=== PATIENT | male | born 1960 | race Caucasian/White ===

== ENCOUNTER 2023-04-26 16:46 | Emergency (ER) | payer OTHER, SELFPAY ==
[2023-04-26] VITALS (8 sets, daily range): BP systolic 160–198; BP diastolic 92–119; PULSE 76–99; RESP 16–21; TEMP 36.9; O2SAT 95–98
--- NOTE | ~2023-04-26 | XR_ITS ---
EXAMINATION: XR shoulder LT min 2V DATE: 04/26/2023 17:33 INDICATION: Left shoulder injury TECHNIQUE: AP and transscapular Y views of the left shoulder were obtained. COMPARISON: None FINDINGS: Anterior dislocation of the left humeral head with respect to the glenoid. No evident fracture. Mild acromioclavicular osteoarthritis. Soft tissues are unremarkable. No airspace opacities in the visuali zed left lung. IMPRESSION: Anterior left glenohumeral dislocation without evident fracture. Reviewed, dictated and finalized at location A. R FINISHER
--- NOTE | ~2023-04-26 | XR_ITS ---
EXAMINATION: XR shoulder LT 1V DATE: 04/26/2023 19:41 INDICATION: Attempted reduction of a left shoulder dislocation TECHNIQUE: AP view of the left shoulder was obtained. COMPARISON: 04/26/2023 at 5:31 PM FINDINGS: Persistent anterior left glenohumeral dislocation. There is a curvilinear opacity projecting over the humeral head slightly anteromedial to the expected rim of the glenoid which is suspicious for possib le associated Bankart fracture. No other lesions suspicious for fracture identified. IMPRESSION: 1. Persistent anterior left glenohumeral dislocation. 2. Curvilinear opacity suspicious for mildly displaced Bankart fracture at the anteroinferior glenoid . Recommend complete shoulder series for further evaluation post successful reduction. Reviewed, dictated and finalized at location A. MASTER RELIEF IMPRESSION: 1. Persistent anterior left glenohumeral dislocation. 2. Curvilinear opacity suspicious for mildly displaced Bankart fracture at the anteroinferior glenoid. Recommend complete shoulder series for further evaluati on post successful reduction.
--- NOTE | 2023-04-26 19:12 | ED.GENADULT ---
HPI - General Adult General Chief complaint: Extremity Injury, Upper Stated complaint: left shoulder pain Time Seen by Provider: 04/26/23 19:03 History of Present Illness [facility] narrative: Pt presents to the ER after a fall last night. Decreased movement of left arm today then felt a crunch after reaching into the fridge. Has history of shoulder injury in the past. He states that he could not lift his arm all the way up after the fall last night. Tingling of left fingers started upon arrival to the emergency department. Related Data Home Medications Medication Instructions Recorded Confirmed losartan 100 mg tablet 100 mg PO DAILY 10/06/22 10/10/22 Allergies Allergy/AdvReac Type Severity Reaction Status Date / Time No Known Allergies Allergy Unverified 10/06/22 15:00 Review of Systems Review of Systems: ROS negative except for what is documented in the [facility] Social History Social History (Updated 10/06/22 @ 15:02 by Seda Garland [facility]) Smoking status: Never smoker Alcohol intake: current Lack of Transportation: No Lack of Food: Never True Current Housing: I Have Housing Concerned About Future Housing: No Difficulty Paying Gas/Electric Bills: No Difficulty Paying for Meds: No Currently Unemployed: No Education: High School Diploma/GED Difficulty w/ Childcare or Family Care: No Exam Narrative: GENERAL: Well-appearing, well-nourished, and in no acute distress. HEAD: Normocephalic, atraumatic. EYES: PERRLA and EOMI. ENT: Nares clear, no rhinorrhea or epistaxis. Mucous membranes moist. NECK: Supple. CHEST: Clear to auscultation. No respiratory distress. HEART: Regular rate and rhythm. ABDOMEN: Soft, nontender, nondistended. EXTREMITIES: No edema. Left radial pulse strong. Patient has pain with movement of left arm SKIN: Warm, dry, no rash. NEURO: No focal deficits. Alert and oriented x3. No weakness or numbness of the left arm PSYCH: Normal mood and affect. Course Course Emergency Course: left shoulder dislocation on xray - sedation and reduction discussed with patient and family exam after patient sedated shows full ROM of left shoulder. unable to reduce with external rotation and supination or traction/countertraction. Discussed with Dr Grigsby who agrees that exam is not consistent with reduction. I have concern for tearing of ligaments versus chronic arthritis. Ortho agrees to see pt in the office this week 2109 Patient continues to have pain. Toradol and morphine ordered. We will also place in sling and reassess. He continues to complain of tingling of his left hand. Vital Signs Vital signs: Vital Signs Temperature 36.9 C 04/26/23 16:48 Pulse Rate 99 04/26/23 16:48 Respiratory Rate 20 04/26/23 16:48 Blood Pressure 160/92 H 04/26/23 16:48 Pulse Oximetry 98 04/26/23 16:48 Oxygen Delivery Room Air 04/26/23 16:48 Temperature 36.9 C 04/26/23 16:48 Pulse Rate 76 04/26/23 20:08 Respiratory Rate 18 04/26/23 20:08 Blood Pressure 175/104 H 04/26/23 20:08 Pulse Oximetry 96 04/26/23 20:08 Oxygen Delivery Room Air 04/26/23 20:08 Oxygen Flow Rate 2 04/26/23 19:54 Procedures Orthopedic Joint Reduction Joint #1: Orthopedic Joint Reduction Date: 04/26/23 Side: left Joint Reduction Location: shoulder Analgesia: procedural sedation Pre-Procedure Neuro Vascular Exam: abnormal Shoulder Technique Used (if applicable): traction/counter-traction, scapula manipulation and external rotation Post-reduction neuro exam: intact Post-reduction vascular: intact Post Reduction X-Ray Obtained: Yes Post Reduction X-Ray Results: not reduced Splint Applied: No Patient Tolerated Procedure: well Additional Comments: Full ROM of left shoulder while sedated Multiple techniques applied without reduction Procedural Sedation Procedural Sedation #1:
[2023-04-26] MEDS: fentaNYL CITRATE INJ (*CRX) 100 MCG/2 ML VIAL 50 MCG IV PUSH ×2 (19:24→19:25)
[2023-04-26] MEDS: ETOMIDATE 20 MG/10 ML AMPUL 10 MG IV PUSH (19:24)
[2023-04-26] MEDS: SODIUM CHLORIDE 0.9% IV 1,000 ML 150 ML IV CONT (19:25)
--- NOTE | 2023-04-26 19:50 | PC.NURSE ---
Addendum entered by Simran Burks RN 04/26/23 19:57: Etomidate not Atomidate Original Note: in room verbal orders to push medications. 2 RN at bedside at this time. Patient is hooked up to monitor. Bedside X-Ray taken after. 50 of fentanyl given at 1927 50 of fentanyl given at 1928 Atomidate given at 1928 (50) Atomidate given at 1930 (50)
[2023-04-26] MEDS: KETOROLAC 15 MG/ML VIAL (*BKC) IV PUSH (20:59)
[2023-04-26] MEDS: MORPHINE SULFATE (*CRX) 2 MG/ML INJ IV PUSH (21:00)
[2023-04-26] MEDS: HYDROmorphone HCL INJ (*CRX) 1 MG/ML SYR IV PUSH (21:19)
== END 2023-04-26 21:51 | disposition home or self-care (01) ==
PROVIDERS: Emergency Provider Emergency Medicine; PCP Nurse Practitioner Family
DX: S43.015A Anterior dislocation of left humerus, initial encounter (principal); I10 Essential (primary) hypertension; X50.0XXA Overexertion from strenuous movement or load, initial encounter
CPT/HCPCS: 23650; 73020; 73030; 96374; 96375; 99285; A4565; J1170; J1885; J2270; J3010; J7030

== ENCOUNTER → 2023-04-29 09:50 | Outpatient (CLI) | payer OTHER, SELFPAY ==
--- NOTE | ~2023-04-29 | MR_ITS ---
EXAMINATION: MR shoulder LT wo con DATE: 04/29/2023 10:58 INDICATION: Left shoulder pain TECHNIQUE: Magnetic resonance imaging (MRI) of the left shoulder was performed without intravenous co ntrast. Sequences included axial PD-weighted FS FSE, coronal oblique PD-weighted FS FSE, coronal obli que T2-weighted FS FSE, sagittal PD-weighted FS FSE, and sagittal T1-weighted SE. COMPARISON: None. FINDINGS: Coracoacromial arch: The acromion undersurface is minimally curved in morphology (type I-II). There is a small anterior mccracken bacromial spur at the acromial insertion of the normal coracoacromial ligament. Moderate acromioclavi cular osteoarthritis with mild subarticular edema-like signal changes primarily at the clavicular arleth e of the joint space and without significant osteophytosis. Rotator cuff: Moderate supraspinatus and infraspinatus tendinopathy with full-thickness tear measuring 2 cm AP ruma g the greater tuberosity footplate of the mid to posterior supraspinatus and anterior infraspinatus t endons. The tear measures 2 mm medial collateral with the retracted tear margin located slightly late ral to the lateral rim of the acromion. The anteriormost portion of the supraspinatus tendon remains intact. The teres minor tendon is normal. Moderate subscapularis tendinopathy without discrete tear. No asymmetric rotator cuff muscle atrophy suggesting the full-thickness supraspinatus tendon tear is acute. Biceps tendon, glenoid labrum and glenohumeral cartilage: Long head of the biceps tendon is normal. Anterior, inferior and medial distraction osseous Bankart d isplacement of a thin crescentic osseous Bankart fracture fragment arising from the anteroinferior ri m of the glenoid. The fragment with attached torn labrum measures approximately 2.2 cm in length and is best appreciated on the postreduction radiographs from 04/27/2023. The donor site appears to extend from the 2:30 to the 5:00 position of the glenoid insertion of the anterior-inferior glenoid. There is associated periosteal stripping along the anteroinferior glenoid which includes the glenohumeral l igament. There is also an detachment of the inferior labrum extending posteriorly to the pancreatic f racture defect to at least the 6:00 position. There is additional separate labral tear along the 9:00 -10:30 position of the posterior glenoid. This appears also include a small test avulsed bone fragmen t which is also better seen on the prior postreduction radiographs projecting posterior to the julisa l head on the transscapular Y projection. Small region of glenoid chondral injury along the margin of the osseous Bankart fracture. Mild partial-thickness cartilage loss with smooth chondral surface patrick ng the cephalad third of the glenoid and inferomedial aspect of the humeral head likely related to pr e-existing mild glenohumeral osteoarthritis. Fluid: Large glenohumeral joint effusion with heterogeneous increased T2 signal at the axillary recess likel y representing a hemarthrosis. This extends through the full-thickness rotator cuff tear into the sub acromial/subdeltoid and subcoracoid bursae. There is also edema extending medially from the deep subs capular recess to involve the deep aspect of the subscapularis muscle belly along the anterior margin of the scapular body. Bones: Bone alignment is normal. There is mild marrow edema along a Hill-Sachs fracture trough at the mobile device engineer olateral aspect of the humeral head. Prominent cystic change along the lesser tuberosity, superior fa cet of the greater tuberosity along the lateral margin of the intertubercular groove likely related t o chronic rotator cuff disease. IMPRESSION: 1. Hill-Sachs fracture trough and corresponding displaced osseous Bankart fracture at the anterior to anteroinferior glenoid consistent with recent anterior dislocation injury. Labral detachment separat e from the Bankart fracture fragment extends mobile device engineer
== END ==
PROVIDERS: PCP Nurse Practitioner Family; Visit Provider Orthopaedic Surgery
DX: S43.005A Unspecified dislocation of left shoulder joint, initial encounter (principal); S42.292A Other displaced fracture of upper end of left humerus, initial encounter for closed fracture; S43.432A Superior glenoid labrum lesion of left shoulder, initial encounter; M19.012 Primary osteoarthritis, left shoulder; T14.90XA Injury, unspecified, initial encounter
CPT/HCPCS: 73221

== ENCOUNTER 2023-05-01 09:38 | Emergency (ER) | payer OTHER, SELFPAY ==
[2023-05-01] VITALS (8 sets, daily range): BP systolic 147–180; BP diastolic 93–106; PULSE 66–98; RESP 12–18; TEMP 36.5–37; O2SAT 95–100
--- NOTE | ~2023-05-01 | XR_ITS ---
EXAMINATION: XR shoulder LT min 2V INDICATION: Post reduction TECHNIQUE: Two views of the left shoulder are submitted. COMPARISON: 1005 hours; MRI, 04/29/2023 FINDINGS: Alignment is within reduced. Again noted are a Hill-Sachs fracture and Bankart fracture of the inferior glenoid. No new fracture is identified. There is mild osteoarthritis of the glenohumeral and acromioclavicular joints. Soft tissues are unremarkable. IMPRESSION: 1. Reduced glenohumeral dislocation. 2. Subacute Hill-Sachs and Bankart fractures. Reviewed, dictated and finalized at location B. T AND PATTERN DESIGNER
--- NOTE | ~2023-05-01 | XR_ITS ---
Left Shoulder Technique: AP and scapular Y views were obtained. Clinical History: Dislocation COMPARISON: 04/27/2023 Findings: There is anteroinferior dislocation of the left humeral head. AC joint is intact. Probable Hill-Sachs impaction deformity of the humeral head. Soft tissues are unremarkable. Impression: Anteroinferior dislocation of the left humeral head. Probable Hill-Sachs impaction deformity of the humeral head. Recent MR from 04/29/2023 demonstrated osseous Bankart lesion/glenoid fracture, which is not clearly d elineated on plain radiographs. Reviewed, dictated and finalized at location . F SCIENCE OFFICER Impression: Anteroinferior dislocation of the left humeral head. Probable Hill-Sachs impaction deformity of the humeral head. Recent MR from 04/29/2023 demonstrated osseous Bankart lesion/glenoid fracture, which is not clearly delineated on plain radiographs.
--- NOTE | 2023-05-01 10:42 | ED.UPPEXIN ---
HPI - Extremity Injury (Upper) General Chief Complaint: Extremity Injury, Upper Stated Complaint: shoulder pain Time Seen by Provider: 05/01/23 09:59 History of Present Illness HPI narrative: 63M p/w recurrent L shoulder dislocation; has been having tingling/weakness to LUE since then. Related Data Home Medications Medication Instructions Recorded Confirmed losartan 100 mg tablet 100 mg PO DAILY 10/06/22 04/28/23 Allergies Allergy/AdvReac Type Severity Reaction Status Date / Time No Known Allergies Allergy Unverified 04/27/23 15:57 Review of Systems Review of Systems: All systems reviewed & are unremarkable except as noted in HPI and below PMFSH Past Medical History Medical History (Updated 05/01/23 @ 12:12 by Shannan Bernardo MD) Hypertension Traumatic brachial plexopathy Surgical History Surgical History (Updated 04/27/23 @ 15:57 by Angeline Gonzalez) History of oral surgery Social History Social History (Updated 04/27/23 @ 15:58 by Angeline Gonzalez) Smoking status: Never smoker Tobacco type: cigarettes Alcohol intake: current Lack of Transportation: No Lack of Food: Never True Current Housing: I Have Housing Concerned About Future Housing: No Difficulty Paying Gas/Electric Bills: No Difficulty Paying for Meds: No Currently Unemployed: No Education: High School Diploma/GED Difficulty w/ Childcare or Family Care: No Exam Narrative: EXAMINATION OF ORGAN SYSTEMS/BODY AREAS: Constitutional: Vital signs per nursing GENERAL:[No acute distress, non-toxic appearing.] HEAD: Normal with no signs of head trauma. EYES: EOMI, conjunctiva normal ENT: Hearing grossly intact LUNGS: Nonlabored breathing. HEART: [Regular rate and rhythm] ABD: [Soft], [nontender to palpation] EXT: Tenderness/swelling to L shoulder with squared off appearance SKIN: [No rashes or lesions.] NEURO: [Alert and oriented x 3. Weakness to L hand and some diminished sensation.] PSYCH: Normal affect Course Vital Signs Vital signs: Vital Signs Temperature 98.6 F 05/01/23 09:48 Pulse Rate 98 05/01/23 09:48 Respiratory Rate 16 05/01/23 09:48 Blood Pressure 175/97 H 05/01/23 09:48 Pulse Oximetry 99 05/01/23 09:48 Temperature 97.8 F 05/01/23 12:15 Pulse Rate 76 05/01/23 12:15 Respiratory Rate 18 05/01/23 12:15 Blood Pressure 170/102 H 05/01/23 12:15 Pulse Oximetry 100 05/01/23 12:15 Oxygen Delivery Room Air 05/01/23 12:15 Oxygen Flow Rate 2 05/01/23 11:58 Procedures Orthopedic Joint Reduction Joint #1: Orthopedic Joint Reduction Date: 05/01/23 Orthopedic Joint Reduction Time: 11:48 Time Out Performed: Yes Side: left Joint Reduction Location: shoulder Analgesia: procedural sedation Pre-Procedure Neuro Vascular Exam: abnormal Shoulder Technique Used (if applicable): traction/counter-traction, scapula manipulation and other (Park) Post-reduction neuro exam: no change Post-reduction vascular: intact Post Reduction X-Ray Obtained: Yes Post Reduction X-Ray Results: reduced Splint Applied: Yes Patient Tolerated Procedure: well and no complications Procedural Sedation Procedural Sedation #1: Procedural Sedation Date: 05/01/23 Procedural Sedation Time: 12:00 Procedure: L shoulder reduction Provider Performed: sedation and procedure Time Out: yes Informed Consent Obtained: yes Equipment in Room: bag and mask, capnography, warehouse man, crash cart, oxygen, pulse oximeter and suction ASA Class: II Mallampati Classification: class II NPO Status: last solid food (hours ago) Explanation to Patient/Family: Risk/Benefits/Alternatives and Pt/Family agreed with plan Pt. Educated on Procedural Sedation: Yes Re-evaluated immediately prior: Yes Preparation: warehouse man applied, pulse oxi
[2023-05-01] MEDS: MIDAZOLAM HCL (*CRX) 2 MG/2 ML VIAL 5 MG IV PUSH (10:53)
--- NOTE | 2023-05-01 10:57 | PC.NURSE ---
MD Paula at bedside to reduce shoulder. Pt on cardiac, pulse ox, and blood pressure monitoring.
[2023-05-01] MEDS: PROPOFOL IV EMULSION 200 MG/20 ML VIAL 80 MG IV PUSH (11:48)
[2023-05-01] MEDS: fentaNYL CITRATE INJ (*CRX) 100 MCG/2 ML VIAL 50 MCG IV PUSH (11:48)
[2023-05-01] MEDS: SODIUM CHLORIDE 0.9% IV 1,000 ML 999 ML (12:11)
== END 2023-05-01 12:48 | disposition home or self-care (01) ==
PROVIDERS: Emergency Provider Emergency Medicine; PCP Nurse Practitioner Family
DX: S43.005A Unspecified dislocation of left shoulder joint, initial encounter (principal); I10 Essential (primary) hypertension; X58.XXXA Exposure to other specified factors, initial encounter
CPT/HCPCS: 23650; 73030; 96374; 99285; J2250; J2704; J3010; J7030

== ENCOUNTER 2023-05-19 12:11 | Outpatient (CLI) | payer OTHER, SELFPAY ==
--- NOTE | 2023-05-19 12:21 | ECG_ITS ---
Measurements Intervals [place] Rate: 81 P: 137 IL: 149 QRS: 199 QRSD: 105 T: 171 QT: 380 QTc: 444 Interpretive Statements SINUS RHYTHM ARM LEADS REVERSED BORDERLINE R WAVE PROGRESSION, ANTERIOR LEADS BASELINE ARTIFACT- I, II, AVR, AVL, AVF, V1-V3 BORDERLINE ECG NO PREVIOUS ECG AVAILABLE FOR COMPARISON Electronically Signed On 05-19-2023 12:47:13 PACKAGING MATERIALS INSPECTOR by Anil Tate D.O.
== END 2023-05-19 12:12 | disposition home or self-care (01) ==
LOC: ANHSURGERY 12:15
PROVIDERS: PCP Nurse Practitioner Family; Visit Provider Orthopaedic Surgery
DX: I10 Essential (primary) hypertension (principal); Z01.818 Encounter for other preprocedural examination; R94.31 Abnormal electrocardiogram [ECG] [EKG]
CPT/HCPCS: 93005

== ENCOUNTER 2023-05-22 01:40 | Day surgery (SDC) | payer OTHER, SELFPAY ==
--- NOTE | 2023-05-19 09:41 | PC.NURSE ---
Report to the Outpatient Waiting Room, entrance under the green pavilion located off [facility], at time __1100 on date __05/22/23 . Planned Procedure Time: _1300 . Time changes happen often and if your time is changed the preop area will call you the afternoon before. - You and your visitor will be asked to self-screen and do not enter if you have any COVID symptoms. - A mask is optional within the hospital at this time. Patients may have clear liquids (water, carbonated beverages, clear teas, apple juice) until 3 hours prior to surgery with a maximum of 20 ounces. - No food from midnight until time of surgery - Infants may have breast milk until 4 hours before surgery, infant formula 6 hours prior to surgery. - Children will be allowed to drink immediately following surgery. If applicable, please bring a bottle or sippy cup to assist with drinking. Juice, water, soda, and popsicles are readily available. For infants on formula, please bring formula the day of surgery. Pacifiers are allowed. Take the following medications with a SIP of water the morning of surgery: ____NONE DO NOT STOP ANY OF YOUR OTHER PRESCRIPTION MEDICATIONS PRIOR TO SURGERY ?EXCEPT THE FOLLOWING Medications to discontinue per physician ____ALL VITAMINS AND SUPPLEMENTS 3 DAYS PRE OP.LAST DOSE_05/18/23 Please no make-up, nail egyptian, hairspray, perfume, deodorant, or body powder the day of surgery. No jewelry (including any body piercings) or valuables the day of surgery, leave them at home. Please take a shower or bath the night before, or the morning of, surgery with an antibacterial soap. Wear comfortable, loose fitting clothing. Children are encouraged to wear pajamas. - Jewelry must be removed prior to entering the operating room. Rings and piercings that are not removed may be cut off. - The hospital will not accept responsibility for valuables. - Please leave all valuables, including medications, at home the day of surgery. If you are going home after surgery, a licensed motorcycle delivery driver must drive you home. - NO public transportation without another adult if you receive anesthesia. - We recommend that an adult stay with you for 24 hours following discharge. - We also recommend that you do not drive, make important decision, drink alcoholic beverages, or take any drugs that were not prescribed by your health care provider for at least 24 hours after your discharge time. For Pediatric surgeries, we recommend two adults accompany the child home. Follow any additional instructions given to you from your surgeon. If you or anyone in your household have experienced Covid symptoms in the past week, please notify your surgeon or the nurse liaison at the phone number below for possible testing. Telephone instructions given to ___PATIENT and asked if any additional questions and then verbalized understanding. Patient advised to call surgeon office or pre surgery nurse liaison [phone] if any additional questions.
[2023-05-19 09:53] VITALS: BMI 26.6
--- NOTE | 2023-05-21 14:37 | P.PNAN_ITS ---
Anes - Initial Pre Proc Eval Procedure: Operation Date: 05/22/23 11:30 Proposed Procedures p Left Shoulder Arthroscopic Bankart Repair, Rotator Cuff Repair - Benji Grigsby MD Date/Time: 05/21/23 14:37 Surgeon: Benji Grigsby MD Pre Op Diagnosis: left shoulder dislocation Patient Data Age: 63 Gender: M Height: 1.73 m Weight: 79.4 kg Allergies Allergy/AdvReac Type Severity Reaction Status Date / Time No Known Allergies Allergy Verified 05/22/23 09:18 Home Medications Medication Instructions Recorded Confirmed Type losartan 100 mg tablet 100 mg PO DAILY 10/06/22 05/19/23 History ascorbic acid (vitamin C) 1,000 mg 1 g PO DAILY 05/19/23 05/19/23 History tablet calcium polycarbophil 625 mg 1,250 mg PO DAILY 05/19/23 05/19/23 History tablet (Fiber-Tabs) glucosamine sulf dipot 1 cap PO DAILY 05/19/23 05/19/23 History chlr,msm,chond 550 mg-C 30 mg-luis alberto 1 mg capsule (Glucosamine Chondroitin) lutein 20 mg tablet 20 mg PO DAILY 05/19/23 05/19/23 History multivitamin 1 tablet PO DAILY 05/19/23 05/19/23 History vitamin B complex 1 cap PO DAILY 05/19/23 05/19/23 History Patient hx anesthesia problems: none Family hx anesthesia problems: none Results Review: All pre-operative results and documents have been reviewed as part of the pre- operative evaluation. [facility] Past Medical History Medical History Hypertension Traumatic brachial plexopathy Surgical History Surgical History History of oral surgery Social History Social History Smoking status: Never smoker Tobacco type: cigarettes Alcohol intake: current Drinks per week: 12 Lack of Transportation: No Lack of Food: Never True Current Housing: I Have Housing Concerned About Future Housing: No Difficulty Paying Gas/Electric Bills: No Difficulty Paying for Meds: No Currently Unemployed: No Education: High School Diploma/GED Difficulty w/ Childcare or Family Care: No Living arrangements: with family Spiritual care concerns: No Anes - Eval Final PreProcedure Day of Procedure 05/21/23 14:37 Patient weight: overweight Heart: regular rate and rhythm Lungs: clear to auscultation Airway: Mallampati scale class II Neurological: alert and oriented Last oral intake: >/= 8 hours ASA classification: II Emergent: no Anesthetic plan: proceed Anesthesia type and monitoring: general ETT and standard monitoring Results Review: All pre-operative results and documents have been reviewed as part of the pre- operative evaluation. Informed Consent: The patient's anesthetic plan and its attendant risks and benefits were discussed with the patient/family/POA. Questions were solicited and answers provided to the satisfaction of the patient/family/POA.
[2023-05-22] VITALS (11 sets, daily range): BP systolic 126–160; BP diastolic 88–109; PULSE 59–87; RESP 12–20; TEMP 36.1–36.4; O2SAT 95–99
[2023-05-22] MEDS: ACETAMINOPHEN 500 MG TABLET 1000 MG PO (09:36)
[2023-05-22] MEDS: LACTATED RINGERS 1,000 ML 30 ML IV CONT ×2 (09:40→15:14)
[2023-05-22] MEDS: KETOROLAC 15 MG/ML VIAL (*BKC) IV PUSH (10:38)
--- NOTE | 2023-05-22 10:53 | P.PNAN_ITS ---
Anes - Initial Pre Proc Eval Procedure: Operation Date: 05/22/23 11:30 Proposed Procedures p Left Shoulder Arthroscopic Bankart Repair, Rotator Cuff Repair - Benji Grigsby MD Date/Time: 05/22/23 10:53 Surgeon: Benji Grigsby MD Pre Op Diagnosis: left shoulder dislocation Patient Data Age: 63 Gender: M Height: 1.73 m Weight: 81.6 kg Last Vital Signs Temp 36.4 C 05/22/23 09:51 Pulse 59 L 05/22/23 09:51 Resp 18 05/22/23 09:51 BP 144/99 H 05/22/23 09:51 Pulse Ox 98 05/22/23 09:51 O2 Del Method Room Air 05/22/23 09:51 Allergies Allergy/AdvReac Type Severity Reaction Status Date / Time No Known Allergies Allergy Verified 05/22/23 09:18 Home Medications Medication Instructions Recorded Confirmed Type losartan 100 mg tablet 100 mg PO DAILY 10/06/22 05/19/23 History ascorbic acid (vitamin C) 1,000 mg 1 g PO DAILY 05/19/23 05/19/23 History tablet calcium polycarbophil 625 mg 1,250 mg PO DAILY 05/19/23 05/19/23 History tablet (Fiber-Tabs) glucosamine sulf dipot 1 cap PO DAILY 05/19/23 05/19/23 History chlr,msm,chond 550 mg-C 30 mg-luis alberto 1 mg capsule (Glucosamine Chondroitin) lutein 20 mg tablet 20 mg PO DAILY 05/19/23 05/19/23 History multivitamin 1 tablet PO DAILY 05/19/23 05/19/23 History vitamin B complex 1 cap PO DAILY 05/19/23 05/19/23 History Patient hx anesthesia problems: none Family hx anesthesia problems: none Results Review: All pre-operative results and documents have been reviewed as part of the pre- operative evaluation. [facility] Past Medical History Medical History Hypertension Traumatic brachial plexopathy Surgical History Surgical History History of oral surgery Social History Social History Smoking status: Never smoker Tobacco type: cigarettes Alcohol intake: current Drinks per week: 12 Lack of Transportation: No Lack of Food: Never True Current Housing: I Have Housing Concerned About Future Housing: No Difficulty Paying Gas/Electric Bills: No Difficulty Paying for Meds: No Currently Unemployed: No Education: High School Diploma/GED Difficulty w/ Childcare or Family Care: No Living arrangements: with family Spiritual care concerns: No Anes - Eval Final PreProcedure Day of Procedure 05/22/23 10:53 Patient weight: overweight Heart: regular rate and rhythm Lungs: clear to auscultation Airway: Mallampati scale class II Neurological: alert and oriented Last oral intake: >/= 8 hours ASA classification: II Emergent: no Anesthetic plan: proceed Anesthesia type and monitoring: general ETT and standard monitoring Results Review: All pre-operative results and documents have been reviewed as part of the pre- operative evaluation. Informed Consent: The patient's anesthetic plan and its attendant risks and benefits were discussed with the patient/family/POA. Questions were solicited and answers provided to the satisfaction of the patient/family/POA.
--- NOTE | 2023-05-22 12:00 | WPDHPUPDATE1 ---
History and Physical Update Update Date/Time: 05/22/23 12:00 History and Physical has been reviewed, including an updated exam of the patient. There are NO changes in the patient's condition. Risks, benefits, and alternatives have been discussed and questions answered. Patient agrees to proceed with procedure.
[2023-05-22] MEDS: ceFAZolin 2 GM/D5W 50 ML 2 GM/50 ML BAG IVPB (12:13)
[2023-05-22] MEDS: BUPIVACAINE/EPINEPHRINE 0.5% 10 ML VIAL 30 ML INFILTRATE (12:58)
[2023-05-22] MEDS: EPINEPHrine HCL INJ 1 MG/ML AMPUL IRRIGATION (13:58)
--- NOTE | 2023-05-22 15:09 | P.OP_ITS ---
Procedure Note - Detailed Date of Procedure 05/22/23 Pre-op Diagnosis 1. Left shoulder acute anterior dislocation with recurrent instability 2. Acute traumatic complete rotator cuff tear Post-op Diagnosis Other (1. Left shoulder acute anterior dislocation with recurrent instability 2. Acute traumatic complete rotator cuff tear2. Subacromial impingement 3. Biceps tendinosis ) Procedure Performed Left shoulder 1. Arthroscopic anterior capsulorraphy. 2. Arthroscopic rotator cuff repair 3. Arthroscopic biceps tenodesis 4. Arthroscopic subacromial decompression Surgeon Benji Grigsby MD Anesthesia General and Regional ( interscalene block) Indications Acute anterior dislocation with recurrent instability and acute rotator cuff tear. Findings Anterior capsulolabral tear. Large superior rotator cuff tear and upper subscapularis tear and severe biceps tendinosis. Two suture anchors anterior glenoid with capsulolabral repair. Suture anchor repair of the subscapularis, and double row repair of the supra and infraspinatus. Biceps tendon included. Description of Procedure Preoperative antibiotics were given. An interscalene block was administered in the preoperative area. The patient was bought brought to the operating room. A general anesthetic was administered. The patient was carefully positioned in the beach chair position. The head and neck were carefully positioned. The non operative extremity was also carefully positioned. The shoulder was prepped and draped in the usual sterile fashion. Examination was performed. Standard posterior and anterior arthroscopic portals were established. Inflow achieved with the arthroscopic pump using saline and epinephrine. The glenohumeral joint was carefully inspected. The cartilage was healthy. The biceps showed significant tendinosis and was released for later tenodesis. The subscapularis was frayed and partially torn in its upper aspect. This was repaired with a SwiveLock suture anchor and a mattress suture. The anterior capsule was very scarred and attenuated. Typical releases were performed along the anterior glenoid neck. To all suture FiberTak anchors were used on the anterior glenoid rim. The area near the middle glenohumeral ligament at 09:00 o'clock was repaired and it suture was also placed at the 7:30 position. The remaining tissue was compromised and not repairable. Attention was turned to the subacrom ial space. A complete bursectomy was performed. The rotator cuff and footprint were lightly debrided. A modest acromioplasty was performed. The tear configuration was carefully assessed. Crescentic type tear which was fairly wide. Minimal retraction. At this time, 2 anchors were placed medially. Three suture passes from each anchor. Two additional mattress sutures were placed, 1 anterior and 1 posterior. The anterior suture included the biceps for tenodesis. Two of the medial row sutures were tied. The remaining suture was split with the FiberTape allowing Ines crossed compression to a lateral row. The corresponding mattress sutures were also included. The repair was quite anatomic, secure, and without undue tension. The arthroscopic instruments were removed. The wounds were closed with 3-0 Monocryl subcuticular suture and steri strips. There were no complications. A sling was applied and the patient brought to the recovery room. Implants Three SwiveLock anchors. Two FiberTak anchors for the rotator cuff and 2 FiberTak anchors for the labral repair. Estimated Blood Loss 10 Pathology None sent Complications No immediate complications Condition Stable Disposition PACU [facility] Billing Surgery - Charge Forward: Surgery Billing
[2023-05-22] MEDS: oxyCODONE HCL (*CRX) 5 MG TAB IR PO (16:55)
== END 2023-05-22 17:45 | disposition home or self-care (01) ==
PROVIDERS: PCP Nurse Practitioner Family; Visit Provider Orthopaedic Surgery
PROC: (CPT 29805; principal; 2023-05-22 11:30)
DX: S43.015A Anterior dislocation of left humerus, initial encounter (principal); S46.012A Strain of muscle(s) and tendon(s) of the rotator cuff of left shoulder, initial encounter; S43.492A Other sprain of left shoulder joint, initial encounter; M75.22 Bicipital tendinitis, left shoulder; I10 Essential (primary) hypertension; W19.XXXA Unspecified fall, initial encounter
CPT/HCPCS: 29827; 29828; 29826; 93005; A4565; A9270; C1713; J0171; J0330; J0690; J1100; J1170; J1885; J2250; J2371; J2405; J2704; J3010; J7120